=== PATIENT | female | born 1970 | race Caucasian/White ===

== ENCOUNTER 2016-08-04 15:41 | Emergency (ER) | payer OTHER | END 2016-08-04 20:14 | disposition home or self-care (01) | LOC: ER 15:41 | DX: F10.129 Alcohol abuse with intoxication, unspecified (principal); F17.210 Nicotine dependence, cigarettes, uncomplicated; Y90.8 Blood alcohol level of 240 mg/100 ml or more; F31.9 Bipolar disorder, unspecified | CPT/HCPCS: 36415; 80307; 96360; G0480 ==